=== PATIENT | female | born 1990 | race African-American/Black ===

== ENCOUNTER 2025-01-13 17:39 | Emergency (ER) | payer OTHER ==
[~2025-01-13] VITALS: Ht 160 cm; Wt 100.0 kg
[2025-01-13 17:47] VITALS: TEMP 37; O2SAT 100
[2025-01-13] MEDS: LIDOCAINE 5% PATCH TOP SCH (20:30)
[2025-01-13] MEDS: IBUPROFEN 600MG TABLET PO ONE (20:30)
[2025-01-13] MEDS ORDERED: IBUP-2028 MT (22:24)
[2025-01-13] MEDS ORDERED: LIDO700A30 TP (22:24)
[2025-01-13 23:00] VITALS: BP 160/96; PULSE 82; RESP 18; O2SAT 98
== END 2025-01-13 23:01 | disposition home or self-care (01) ==
LOC: ER 17:39
DX: R07.81 Pleurodynia (principal); R51.9 Headache, unspecified; Z90.49 Acquired absence of other specified parts of digestive tract; V89.2XXA Person injured in unspecified motor-vehicle accident, traffic, initial encounter; Y93.89 Activity, other specified; Y92.410 Unspecified street and highway as the place of occurrence of the external cause; Y99.8 Other external cause status
CPT/HCPCS: 71101; 73030; 99284